=== PATIENT | female | born 1945 | race Caucasian/White ===

== ENCOUNTER 2023-02-26 12:09 | Emergency (ER) | payer MEDICARE, BC ==
[~2023-02-26] VITALS: Ht 162.6 cm; Wt 72.6 kg
[2023-02-26] MEDS ORDERED: SILV20CR13 TP (12:53)
[2023-02-26 13:18] VITALS: BP 134/81; TEMP 98.1; O2SAT 100
== END 2023-02-26 13:19 | disposition home or self-care (01) ==
LOC: ER 12:25
DX: T24.201A Burn of second degree of unspecified site of right lower limb, except ankle and foot, initial encounter (principal); Z98.890 Other specified postprocedural states; Z60.2 Problems related to living alone; X08.8XXA Exposure to other specified smoke, fire and flames, initial encounter; Y93.89 Activity, other specified; Y92.89 Other specified places as the place of occurrence of the external cause; Y99.8 Other external cause status

== ENCOUNTER 2023-03-14 10:49 | Emergency (ER) | payer MEDICARE, BC ==
[~2023-03-14] VITALS: Ht 162.6 cm; Wt 72.6 kg
[~2023-03-14 10:49] MED LIST: SILV20CR13 TP
[2023-03-14 11:00] VITALS: BP 140/65; TEMP 98.2
[2023-03-14] MEDS ORDERED: NITROFURANTOIN/MONOHYDRATE MACROCRYSTALS 100 MG CAPSULE PO ONE (12:30)
[2023-03-14] MEDS ORDERED: NITR100C6 PO (12:31)
[2023-03-14 12:33] LABS: APPEARANCE,URINE CLEAR (CLEAR); BILIRUBIN,URINE NEGATIVE (NEGATIVE); BLOOD, URINE 2+ Ery/uL (NEGATIVE); COLOR,URINE OTHER (YELLOW); KETONES,URINE NEGATIVE (NEGATIVE); LEUKOCYTE ESTERASE ,URINE 2+ (NEGATIVE); NITRITE, URINE NEGATIVE (NEGATIVE); PH,URINE 5.5 (5.0-8.0); PROTEIN,URINE NEGATIVE (NEGATIVE); UGLUCOSE NEGATIVE (NEGATIVE); UROBILINOGEN,URINE 0.2 EU/dL (0.2)
[2023-03-14] MEDS ORDERED: NITROFURANTOIN/MONOHYDRATE MACROCRYSTALS 100 MG CAPSULE ONE (12:37)
[2023-03-14 12:42] VITALS: O2SAT 99
[2023-03-14 13:08] LABS: ADD URINE CULTURE YES; BACTERIA,URINE Few /HPF (None Seen); SQUAMOUS EPITHELIAL CELL,UR Few /HPF (None Seen)
== END 2023-03-14 12:43 | disposition home or self-care (01) ==
LOC: ER 10:54
DX: T24.201D Burn of second degree of unspecified site of right lower limb, except ankle and foot, subsequent encounter (principal); Z60.2 Problems related to living alone; X08.8XXD Exposure to other specified smoke, fire and flames, subsequent encounter
CPT/HCPCS: 81001; 87086-TC